=== PATIENT | male | born 1990 | race Hispanic/Latino ===

== ENCOUNTER 2020-03-19 01:45 | Emergency (ER) | payer OTHER ==
[~2020-03-19] VITALS: Ht 170.2 cm; Wt 74.8 kg
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
[2020-03-19 02:11] LABS: BASOPHIL % 0.4 % (0.0-0.2); EOSINOPHIL % 0.2 % (0.0-5.0); LYMPHOCYTES # 2.24 10^3/uL1 (1.0-4.8); LYMPHOCYTES % 21.9 % (24.0-44.0); MEAN CORP HGB 31.3 pg (26-34); MONOCYTES # 0.6 10^3/uL (0.3-0.8); MONOCYTES % 6.2 % (5.0-12.0); NEUTROPHIL # 7.3 10^3/uL (1.8-7.7); NEUTROPHILS % 71.2 % (41.0-85.0); PLATELET COUNT 278 10^3/uL (150-400); RED CELL DISTRIBUTION WIDTH 12.7 % (11.5-14.5)
[2020-03-19 02:21] LABS: CALCIUM 9.3 mg/dL (8.4-10.5); CARBON DIOXIDE 26.2 mmol/L (20.0-32)
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
[2020-03-19 02:41] VITALS: BP 135/93
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
[2020-03-19 03:02] VITALS: BP 128/86
--- NOTE | 2020-03-19 03:20 | NUR ---
Patient ambulated off of unit with no distress noted. Alert and oriented. Patient and family walked to hotel across street for placement for the night
== END 2020-03-19 03:20 | disposition home or self-care (01) ==
LOC: ER 01:45
DX: R10.30 Lower abdominal pain, unspecified (principal); M54.6 Pain in thoracic spine; E87.6 Hypokalemia; V49.9XXA Car occupant (driver) (passenger) injured in unspecified traffic accident, initial encounter; Y93.89 Activity, other specified; Y92.488 Other paved roadways as the place of occurrence of the external cause; Y99.8 Other external cause status
CPT/HCPCS: 36415; 72072; 74177; 80053; 82150; 83690; 85025; 99285; Q9965